=== PATIENT | male | born 1960 | race Caucasian/White ===

== ENCOUNTER 2019-05-02 10:05 | Emergency (ER) | payer SELFPAY ==
[~2019-05-02] VITALS: Ht 182.9 cm; Wt 68.2 kg
[2019-05-02 10:42] LABS: BASO # 0.1 10^3/uL (0.0-0.2); BASO % 0.9 % (0.0-1.0); EOS # 0.2 10^3/uL (0.0-0.5); EOS % 2.1 % (0.0-3.0); HEMATOCRIT 44.5 % (42.0-52.0); HEMOGLOBIN 14.5 g/dl (13.5-17.5); LYMPH # 1.5 10^3/uL (1.5-5.0); LYMPH % 14.7 % (24.0-44.0); MEAN CORPUSCULAR HEMOGLOBIN 30.3 pg (27.0-33.0); MEAN CORPUSCULAR HGB CONC 32.6 g/dl (32.0-36.5); MEAN CORPUSCULAR VOLUME 93.1 fl (80.0-96.0); MONO # 0.9 10^3/uL (0.0-0.8); MONO % 8.3 % (0.0-5.0); NEUTROPHILS # 7.5 10^3/uL (1.5-8.5); NEUTROPHILS % 73.6 % (36.0-66.0); PLATELET COUNT, AUTOMATED 262 10^3/uL (150-450); RED BLOOD COUNT 4.78 10^6/uL (4.30-6.10); WHITE BLOOD COUNT 10.2 10^3/uL (4.0-10.0)
[2019-05-02] MEDS ORDERED: ONDANSETRON 4MG/2ML VIAL (J2405) IV ONE (10:45)
[2019-05-02] MEDS ORDERED: NS 1,000 ML IV ONE (10:45)
[2019-05-02] MEDS ORDERED: MORPHINE 4 MG/ML 1ML VIAL/SYRINGE (J2270) IV ONE (10:45)
[2019-05-02 11:08] LABS: ALBUMIN 3.7 GM/DL (3.2-5.2); ALT/SGPT 23 U/L (12-78); BILIRUBIN,DIRECT 0.1 MG/DL (0.0-0.2); BILIRUBIN,TOTAL 0.5 MG/DL (0.2-1.0); BLOOD UREA NITROGEN 15 MG/DL (7-18); CALCIUM LEVEL 8.9 MG/DL (8.5-10.1); CARBON DIOXIDE LEVEL 28 MEQ/L (21-32); CHLORIDE LEVEL 107 MEQ/L (98-107); CREATININE FOR GFR 1.18 MG/DL (0.70-1.30); GLOMERULAR FILTRATION RATE > 60.0 (>56); GLUCOSE, FASTING 83 MG/DL (70-100); LIPASE 69 U/L (73-393); POTASSIUM SERUM 4.5 MEQ/L (3.5-5.1); SODIUM LEVEL 143 MEQ/L (136-145); TOTAL PROTEIN 7.2 GM/DL (6.4-8.2)
--- NOTE | 2019-05-02 12:37 | REP ---
REASON FOR EXAM: Left flank pain. COMPARISON: None. The lung bases are clear. Limited evaluation of the solid intra-abdominal organs and gallbladder show no gross abnormalities. Limited evaluation of the pancreas and adrenal glands show no gross abnormalities. There is moderate right-sided hydronephrosis and hydroureter, however, there are no ureteroliths and there are no urinary bladder calcifications. There are tiny bilateral nonobstructing nephroliths. Limited evaluation of the abdominal aorta and periaortic region show no gross abnormalities. There is no free fluid or free air. Limited evaluation of the bowel loops and their mesenteries show no gross abnormalities. There is corpora amylacea and there are bilateral pelvic phleboliths. Bone window technique throughout the exam shows the osseous structures to be within normal limits. IMPRESSION: Right-sided hydronephrosis and hydroureter of uncertain etiology. The finding could be secondary to a passed calculus. Although the patient presents with left-sided pain, there is no evidence of left-sided hydronephrosis or hydroureter. There is a tiny simple cyst in the left kidney which is incidental. Electronically Signed by Elliot Garcia DO 05/02/2019 12:40 P
[2019-05-02] MEDS ORDERED: ONDA4TAB6 PO (14:12)
[2019-05-02 14:22] VITALS: BP 93/59
== END 2019-05-02 14:31 | disposition home or self-care (01) ==
LOC: M ED 10:05
DX: N13.30 Unspecified hydronephrosis (principal); R10.9 Unspecified abdominal pain; R11.2 Nausea with vomiting, unspecified; F17.200 Nicotine dependence, unspecified, uncomplicated; F12.10 Cannabis abuse, uncomplicated; Z88.0 Allergy status to penicillin
CPT/HCPCS: 74176; 80048; 80076; 81001; 83690; 85025; 96361; 96374; 96375; 99284; J2270; J2405

== ENCOUNTER → 2020-07-08 | Outpatient (CLI) | payer SELFPAY ==
[~2020-07-08] MED LIST: ONDA4TAB6 PO
== END ==
LOC: M LABSMTC 08:13
PROVIDERS: ATTEND Pediatrics
DX: Z20.822 Contact with and (suspected) exposure to COVID-19 (principal)

== ENCOUNTER → 2021-03-28 | Outpatient (REF) ==
--- NOTE | 2021-03-29 05:52 | REP ---
INDICATION: BACK PAIN COMPARISON: 10/03/2015 TECHNIQUE: AP, lateral, coned-down views of the lumbar spine. FINDINGS: Three views of the lumbosacral spine demonstrate satisfactory alignment and lordosis without acute fracture / compression injury or subluxation. Endplate sclerosis with marginal spurring and minimal disc space narrowing most notably at L3-4 and L5-S1. IMPRESSION: 1. No acute fracture / compression injury or subluxation. 2. Mild degenerative spondylosis. <Electronically signed by Saw Monsalve > 03/29/21 [id number]
== END ==
LOC: M PLAIMG 12:19
PROVIDERS: ATTEND Internal Medicine
DX: M54.9 Dorsalgia, unspecified (principal)

== ENCOUNTER 2021-12-07 12:16 | Emergency (ER) | payer OTHER, SELFPAY ==
[~2021-12-07] VITALS: Ht 182.9 cm; Wt 66.8 kg
[2021-12-07 13:27] LABS: RSV AMPLIFICATION NEGATIVE (NEGATIVE)
[2021-12-07 13:31] VITALS: BP 105/70
[2021-12-07] MEDS ORDERED: NIRMATRELVIR/RITONAVIR CO-PACK (EMERGENCY USE AUTH) PO SCH ×2 (15:00→21:00)
== END 2021-12-07 15:52 | disposition left against medical advice (07) ==
LOC: M ED 12:16
DX: U07.1 COVID-19 (principal); F17.200 Nicotine dependence, unspecified, uncomplicated; Z88.0 Allergy status to penicillin